=== PATIENT | female | born 1935 | race Caucasian/White ===

== ENCOUNTER → 2016-11-01 | Day surgery (SDC) | payer MEDICARE, OTHER ==
[~2016-11-01] MED LIST: Lactated Ringers 1,000 ML IV SCH; Propofol 200 MG/20 ML SDV IV ONE
--- NOTE | 2016-11-01 09:06 | OR ---
DATE OF OPERATION: 11/01/2016 PREOPERATIVE DIAGNOSIS: EPIGASTRIC PAIN. POSTOPERATIVE DIAGNOSIS: GASTRITIS. SURGEON: Jordi Graves MD PROCEDURE: ESOPHAGOGASTRODUODENOSCOPY WITH BIOPSIES X2, BORA. ANESTHESIA: PRODUCTION ILLUSTRATOR due to Sjogren's and chronic GERD. COMPLICATIONS: None. SPECIMEN: 1. Antral biopsy x1. 2. Antral polyp biopsy x3. 3. BORA. FINDINGS: 1. Full-length EGD. 2. Mild antral gastritis without ulceration. 3. Nonspecific antral polyp. 4. Small hiatal hernia without esophagitis. RECOMMENDATIONS: The patient will be placed on proton pump therapy. We will await biopsy and BORA reports. INDICATIONS: The patient has a history of gastritis. She has been having some increase in epigastric bloating and some dyspepsia. We elected to proceed with EGD. DESCRIPTION OF PROCEDURE: The patient was prepped and draped and placed in the left lateral decubitus position. A lubricated Olympus gastroscope was inserted and advanced to the cricopharyngeus area, and easily intubated in the esophagus. Esophageal lining was benign in its entire course. The Z-line was crisp and sharp around 37.5 cm. There was a small hiatal hernia present, but no distal esophagitis, stricturing, ulceration, or Valdes's changes. The scope was advanced into the stomach through the pylorus and into the third portion of the duodenum. This and the duodenal bulb were completely benign. The scope was brought back into the stomach and retroflexed. The upper fundus and cardia were completely unremarkable other than a small hiatal hernia visualized. Upon straightening, thorough evaluation of the gastric lining showed no worrisome lesions. Right around the incisura angularis at the entrance to the beginning of the antrum, the patient has small flat nodule appeared benign, 3 biopsies of it were taken for confirmation. There was some minimal gastritis mostly around the pyloric area. We did a biopsy of that and a BORA. Air was then suctioned. The scope was removed without complication. ISATU/OBI /[id number]
[2016-11-01 09:07] VITALS: BP 138/70
== END ==
LOC: CC.SDS 06:59
PROVIDERS: ATTEND Family Medicine
DX: K29.50 Unspecified chronic gastritis without bleeding (principal); K44.9 Diaphragmatic hernia without obstruction or gangrene; E78.5 Hyperlipidemia, unspecified; I10 Essential (primary) hypertension; M81.0 Age-related osteoporosis without current pathological fracture; M35.00 Sjogren syndrome, unspecified; Z88.1 Allergy status to other antibiotic agents; Z79.899 Other long term (current) drug therapy; Z90.710 Acquired absence of both cervix and uterus; Z90.722 Acquired absence of ovaries, bilateral; Z98.890 Other specified postprocedural states; Z87.891 Personal history of nicotine dependence
CPT/HCPCS: 00740; 43239; 87081; 88305; 88342; J2704; J7120